=== PATIENT | male | born 1950 | race African-American/Black ===

== ENCOUNTER 2016-07-31 09:47 | Day surgery (SDC) | payer MEDICARE ==
[~2016-07-31] VITALS: Ht 188 cm; Wt 72.6 kg
[~2016-07-31 09:47] MED LIST: ASPIRIN CHEWABL81 MG PO; ATORVASTATIN CA40 MG PO; COZAAR100 MG PO; FLEXERIL PO; HYDROCHLOROT12.5 MG PO; LISINOPRIL10 MG PO; NICOTINE T21 MG/PATC TD; ULTRAM50 M1 PO
[2016-07-31 12:43] VITALS: BP 157/62
== END 2016-07-31 13:05 | disposition home or self-care (01) ==
LOC: ENDO 09:47 → ORM 10:45 → ENDO 10:45
PROVIDERS: ATTEND Internal Medicine Gastroenterology
PROC: 0DJD8ZZ Inspection of Lower Intestinal Tract, Via Natural or Artificial Opening Endoscopic (ICD-10-PCS; principal; 2016-07-31)
DX: K62.5 Hemorrhage of anus and rectum (principal); K59.00 Constipation, unspecified; R63.4 Abnormal weight loss; K64.4 Residual hemorrhoidal skin tags; K57.30 Diverticulosis of large intestine without perforation or abscess without bleeding; K64.8 Other hemorrhoids; I10 Essential (primary) hypertension; E78.00 Pure hypercholesterolemia, unspecified

== ENCOUNTER 2016-10-02 11:32 | Day surgery (SDC) | payer MEDICARE ==
[~2016-10-02] VITALS: Ht 188 cm; Wt 74.8 kg
[2016-10-02] MEDS ORDERED: BP MEDICATION (11:41)
[2016-10-02 14:03] VITALS: BP 184/90
== END 2016-10-02 14:20 | disposition home or self-care (01) ==
LOC: ENDO 11:32 → ORM 12:55 → ENDO 12:55 → ORM 16:30
PROVIDERS: ATTEND Internal Medicine Gastroenterology
PROC: 0DB78ZX Excision of Stomach, Pylorus, Via Natural or Artificial Opening Endoscopic, Diagnostic (ICD-10-PCS; principal; 2016-10-02)
DX: R63.4 Abnormal weight loss (principal); R14.0 Abdominal distension (gaseous); K29.50 Unspecified chronic gastritis without bleeding; B96.81 Helicobacter pylori [H. pylori] as the cause of diseases classified elsewhere; K57.31 Diverticulosis of large intestine without perforation or abscess with bleeding; K59.00 Constipation, unspecified; I10 Essential (primary) hypertension

== ENCOUNTER 2017-03-18 16:20 | Observation (INO) | payer MEDICARE ==
[~2017-03-18] VITALS: Ht 188 cm; Wt 66.4 kg
[~2017-03-18 16:20] MED LIST changes: +BP MEDICATION
[2017-03-18] MEDS ORDERED: BACTRIM DS1 TAB PO (16:29)
[2017-03-18] MEDS ORDERED: LOSARTAN/HCT1 TA1 PO (16:29)
[2017-03-18] MEDS ORDERED: LIPITOR80 M1 PO (16:29)
[2017-03-18] MEDS ORDERED: FINASTERIDE5 MG PO (16:30)
[2017-03-18] MEDS ORDERED: TAMSULOSIN HCL0.4 MG PO (16:30)
--- NOTE | 2017-03-18 16:31 | NUR ---
PT SENT BACK TO WAITING ROOM, ADVISED OF BUSY ER STATUS
[2017-03-18 18:37] LABS: URINE BILIRUBIN - DIPSTICK NEGATIVE (NEGATIVE); URINE BLOOD DIPSTICK LARGE (NEGATIVE); URINE COLOR YELLOW; URINE GLUCOSE - DIPSTICK NEGATIVE (NEGATIVE); URINE KETONE NEGATIVE (NEGATIVE); URINE LEUK ESTERASE MODERATE (NEGATIVE); URINE NITRITE - DIPSTICK NEGATIVE (Negative); URINE PROTEIN - DIPSTICK NEGATIVE (NEG-TRACE)
[2017-03-18 18:38] LABS: URINE CLARITY HAZY
[2017-03-18 18:59] LABS: HEMATOCRIT 33.2 % (39.0-50.0); HEMOGLOBIN 11.7 g/dl (14.0-18.0); IMMATURE GRANULOCYTES 0.7 % (0.0-1.0); MEAN CELL VOLUME 88.5 fL CALC (80.0-100.0); MEAN CORPUSCULAR HGB 31.2 pG CALC (26.0-32.0); MEAN CORPUSCULAR HGB CONC 35.2 g/L CALC (32.0-36.0); NEUT# 12.37 thou/uL (1.82-7.42); RED BLOOD COUNT 3.75 mill/uL (4.70-6.10)
[2017-03-18 19:07] LABS: ALBUMIN 4.2 g/dL (3.2-5.0); ALKALINE PHOSPHATASE 104 u/l (38-126); ANION GAP 17 (6-22 (CALC)); BILIRUBIN, TOTAL 0.7 mg/dL (0.0-1.4); BUN 16 mg/dL (8-23); BUN/CREATININE RATIO 14 (12-20 (CALC)); CALCIUM 9.3 mg/dL (8.4-10.2); CARBON DIOXIDE 25 mmol/l (22-30); CHLORIDE 96 mmol/l (95-108); CREATININE 1.1 mg/dL (0.7-1.3); GFR > 60 ML/MIN (>=60 (CALC)); GFR FOR AFR.AMER. > 60 ML/MIN (>=60 (CALC)); GLUCOSE 113 mg/dL (82-115); POTASSIUM 3.3 mmol/l (3.5-5.1); SGOT/AST 73 u/l (19-48); SGPT/ALT 60 u/l (11-66); SODIUM 134 mmol/l (137-146)
[2017-03-18 19:19] LABS: MYOGLOBIN 335 ng/mL (0 - 121)
--- NOTE | 2017-03-18 19:24 | NUR ---
PT AND DAUGHTER UPDATED ON FINDINGS. PT SEEN WITH LEFT LEG TREMOR INTERMITTENTLY.
--- NOTE | 2017-03-18 20:10 | NUR ---
PT TRANSFERRED TO FLOOR VIA STRETCHER IN STABLE CONDITION;ACCOMPANIED BY ALEXIS,RN AND DAUGHTER;PT AMBULATED WITH A WEAK GAIT TO BEDSIDE;WT AND VS OBTAINED BY JOEY CARY;PT ORIENTED TO ROOM AND CALL LIGHT SYSTEM;A&O X3;ASSESSMENT COMPLETED;PT REPORTS STARTING ABX TODAY 03/18/17 FOR A UTI AND SHORLTY AFTER, AROUND 0800, TREMORS TO THE LEFT LEG BEGAN;PT REPORTS NO PAIN AND IS EDUCATED ON PAIN SCALE AND REPORTING;TREMORS VISUALLY SEEN AT THIS TIME;LEFT SIDED WEAKNESS AND FACIAL DROOPING NOTED;PT HAS HAD X2 STROKES IN THE PAST;CAP REFILL LESS THAN 3 SECONDS;SKIN INTACT;#22G TO LEFT FOREARM FLUSHED AND PATENT;TELE MONITOR IN PLACE;RESPIRATIONS EVEN AND UNLABORED ON RA;CLEAR LUNG SOUNDS NOTED;SAFETY PRECAUTIONS REINFORCED WITH BED IN THE LOWEST POSITION;PT EDUCATED TO CALL FOR ASSISTANCE IF NEEDED;CALL LIGHT IN REACH;WILL CONTINUE TO MONITOR
--- NOTE | 2017-03-18 20:29 | NUR ---
REPORT PROVIDED TO AUSTIN, TO MARIN SOON.
[2017-03-18 21:15] VITALS: BP 138/87
--- NOTE | 2017-03-18 21:22 | NUR ---
PT TAKEN TO ROOM 270, SEEN QUITE ATAXIC FROM STRETCHER TO BED.
--- NOTE | 2017-03-18 21:30 | NUR ---
DAUGHTER, ERLIN WORK PHONE # [phone]
--- NOTE | 2017-03-18 23:00 | NUR ---
PT CURRENT TEMP 100.5;BLANKETS REMOVED,AC LOWERED; NOTIFED AND NEW ORDER FOR TYLENOL 650MG PO OBTAINED
--- NOTE | 2017-03-18 23:50 | NUR ---
PT APPEARS TO BE SLEEPING IN SUPINE POSITION;WOKE PT TO MEDICATE HIM WITH PRN TYLENOL 650MG FOR TEMP OF 100.5;PT DENIES ANY NEEDS;TELE MONITOR IN PLACE;URINAL AT BEDSIDE;CALL LIGHT IN REACH;WILL CONTINUE TO MONITOR
[2017-03-19 00:13] VITALS: BP 112/75
--- NOTE | 2017-03-19 00:13 | NUR ---
PT TEMP RE-CHECK 99.1;BLANKETS REMAIN REMOVED AND AC LOW
--- NOTE | 2017-03-19 04:50 | NUR ---
WOKE PT TO OBTAIN VS;PT AWAKE,RESTING IN SEMI FOWLERS POSITION;RESPIRATIONS EVEN AND UNLABORED ON RA;PT DENIES ANY PAIN;NO TREMORS NOTED;TELE MONITOR IN PLACE;FALL PRECAUTIONS NOTED WITH CALL LIGHT IN REACH;WILL CONTINUE TO MONITOR
[2017-03-19 04:51] VITALS: BP 110/75
[2017-03-19 05:33] LABS: HEMATOCRIT 31.7 % (39.0-50.0); HEMOGLOBIN 11.1 g/dl (14.0-18.0); MEAN CELL VOLUME 87.6 fL CALC (80.0-100.0); MEAN CORPUSCULAR HGB 30.7 pG CALC (26.0-32.0); RED BLOOD COUNT 3.62 mill/uL (4.70-6.10)
[2017-03-19 05:49] LABS: ANION GAP 13 (6-22 (CALC)); BUN 13 mg/dL (8-23); BUN/CREATININE RATIO 13 (12-20 (CALC)); CALCIUM 9.2 mg/dL (8.4-10.2); CALCULATED LDLCHOLESTEROL 67 mg/dL (62-129 (CALC)); CARBON DIOXIDE 26 mmol/l (22-30); CHLORIDE 101 mmol/l (95-108); CHOLESTEROL HDL RATIO 4.6 (<4.4 (CALC)); GFR > 60 ML/MIN (>=60 (CALC)); GFR FOR AFR.AMER. > 60 ML/MIN (>=60 (CALC)); GLUCOSE 108 mg/dL (82-115); HDL CHOLESTEROL 24 mg/dL (>=40); POTASSIUM 3.6 mmol/l (3.5-5.1); SODIUM 137 mmol/l (137-146); TOTAL CHOLESTEROL 110 mg/dl (0-199); TOTAL TRIGLYCERIDES 96 mg/dl (30-149); VLDL CHOLESTROL 19 mg/dl (4-45 (CALC))
--- NOTE | 2017-03-19 07:00 | NUR ---
RECEIVED BEDSIDE REPORT FROM AUSTIN CELIS. RESTING IN BED WITH EYES CLOSED, AWAKENS EASILY. RESPS EVEN AND UNLABORED ON ROOM AIR, TELE MONITOR IN PLACE. DENIES PAIN OR DISCOMFORT. PLAN OF CARE DISCUSSED. SAFETY PRECAUTIONS REINFORCED. BED IN LOWEST POSITION WITH WHEELS LOCKED. CALL LIGHT WITHIN REACH. WILL CONTINUE TO MONITOR.
[2017-03-19 07:20] VITALS: BP 104/71
--- NOTE | 2017-03-19 07:20 | NUR ---
PT ASSESSMENT COMPLETE. PT ALERT, ORIENTED X3. SPEECH IS CLEAR. SLIGHT LEFT SIDED FACIAL DROOP AROUND CHEEK AND MOUTH AREA ONLY. RN AWARE. PT HAS HISTORY OF CATARACT SURGERY PUPILS ROUND, REACTIVE TO LIGHT. STRONG UPPER AND LOWER EXTREMITIES. MINIMAL WEAKNESS TO LEFT SIDE. STRONG RADIAL, APICAL, AND PEDAL PULSES. GOOD CAPILLARY REFILL. NO SKIN TURGOR. LUNG SOUNDS CLEAR. BOWEL SOUNDS ACTIVE. PATIENT STATES NO PAIN AT THIS TIME. SIDE RAILS UP. BED IN LOWEST POSITION. CALL LIGHT WITHIN REACH. WILL CONTINUE TO MONITOR.
[2017-03-19 11:05] VITALS: BP 109/74
--- NOTE | 2017-03-19 13:25 | NUR ---
SITTING IN BEDSIDE CHAIR. RESPS EVEN AND UNLABORED ON ROOM AIR, TELE MONITOR IN PLACE. DENIES PAIN OR DISCOMFORT. DR PARIS IN WITH PT, NEW ORDERS RECEIVED. CALL LIGHT WITHIN REACH. WILL CONTINUE TO MONITOR.
--- NOTE | 2017-03-19 14:30 | NUR ---
PHYSICAL THERAPY IN WITH PT.
[2017-03-19 15:27] VITALS: BP 120/78
--- NOTE | 2017-03-19 16:00 | NUR ---
IN HIGH FOWLERS WATCHING TV. RESPS EVEN AND UNLABORED ON ROOM AIR, TELE MONITOR IN PLACE. VOICES NO NEEDS AT THIS TIME. CALL LIGHT WITHIN REACH. WILL CONTINUE TO MONITOR.
--- NOTE | 2017-03-19 16:17 | NUR ---
Talked to patient today about his medical conditions and his medications. Patient felt better today. patient reported dry mouth when taking his medications. Discuss side effects of his bp medications and medications for BPH. Patient reported not experience any side effects with these medications. Patient does not have any other questions to the pharmacy at this time.
--- NOTE | 2017-03-19 19:00 | NUR ---
RECEIVED CHANGE OF SHIFT REPORT FROM BELGICA MELÉNDEZ. PATIENT LYING IN BED AND APPEARS NOT TO BE IN ANY APPARENT ACUTE DISTRESS OR DISCOMFORT. DENIES PAIN. WILL CONTINUE TO MONITOR.
[2017-03-19 19:35] VITALS: BP 109/70
--- NOTE | 2017-03-20 | NUR ---
PATIENT RESTING QUIETLY AT THIS TIME. NO APPARENT ACUTE DISTRESS NOTED.
[2017-03-20 00:05] VITALS: BP 108/70
--- NOTE | 2017-03-20 04:00 | NUR ---
NO APPARENT ACUTE CHANGES NOTED IN THE PATIENT'S CONDITION.
[2017-03-20 04:19] VITALS: BP 109/74
[2017-03-20 06:31] LABS: HEMATOCRIT 31.2 % (39.0-50.0); HEMOGLOBIN 10.8 g/dl (14.0-18.0); MEAN CELL VOLUME 88.4 fL CALC (80.0-100.0); MEAN CORPUSCULAR HGB 30.6 pG CALC (26.0-32.0); MEAN CORPUSCULAR HGB CONC 34.6 g/L CALC (32.0-36.0); RED BLOOD COUNT 3.53 mill/uL (4.70-6.10); RED CELL DISTRI WIDTH 14.4 % (11.5-15.5)
[2017-03-20 06:51] LABS: ANION GAP 16 (6-22 (CALC)); BUN 18 mg/dL (8-23); BUN/CREATININE RATIO 18 (12-20 (CALC)); CALCIUM 9.5 mg/dL (8.4-10.2); CARBON DIOXIDE 26 mmol/l (22-30); CHLORIDE 101 mmol/l (95-108); GFR > 60 ML/MIN (>=60 (CALC)); GFR FOR AFR.AMER. > 60 ML/MIN (>=60 (CALC)); GLUCOSE 104 mg/dL (82-115); POTASSIUM 3.7 mmol/l (3.5-5.1); SODIUM 140 mmol/l (137-146)
--- NOTE | 2017-03-20 07:00 | NUR ---
SHIFT CHANGE REPORT FROM ITZ MART AWAKE ALERT AND ORIENTED SITTING UP IN RECLINER, DENIES PAIN/DISCOMFORT, TELE MONITOR IN PLACE, CALL HOOD IN REACH.
--- NOTE | 2017-03-20 07:15 | NUR ---
ASSISTED PT TO THE RECLINER, PT DID ORAL CARE. CALL LIGHT IN REACH.
[2017-03-20 08:06] VITALS: BP 115/82
[2017-03-20] MEDS ORDERED: ACETAMIN325 MG PO (11:04)
[2017-03-20] MEDS ORDERED: CIPROFLOXACN500 MG PO (11:05)
[2017-03-20 11:07] VITALS: BP 105/71
--- NOTE | 2017-03-20 15:39 | NUR ---
PT'S DAUGHTER ERLIN INFORMED VIA PHONE THAT PT ID READY TO BE D/C, STATES SHE WILL COME TO RECEIVE HIM.
--- NOTE | 2017-03-20 16:33 | NUR ---
Discharge instructions given. Patient verbalizes understanding of same. Discharged in stable condition via Wheelchair to Home with family. All belongings sent with pt.
== END 2017-03-20 16:16 | disposition home or self-care (01) ==
LOC: ED 16:20 → ED-I 19:20 → ED 19:35 → MS2 19:36
PROVIDERS: Emergency Medicine; Nurse Practitioner Family; ADMIT Internal Medicine; ATTEND Internal Medicine
DX: N39.0 Urinary tract infection, site not specified (principal); I10 Essential (primary) hypertension; F17.210 Nicotine dependence, cigarettes, uncomplicated; B96.20 Unspecified Escherichia coli [E. coli] as the cause of diseases classified elsewhere; R25.8 Other abnormal involuntary movements; E46 Unspecified protein-calorie malnutrition; Z68.1 Body mass index [BMI] 19.9 or less, adult; D64.9 Anemia, unspecified; I69.954 Hemiplegia and hemiparesis following unspecified cerebrovascular disease affecting left non-dominant side; I69.992 Facial weakness following unspecified cerebrovascular disease; R94.31 Abnormal electrocardiogram [ECG] [EKG]
CPT/HCPCS: J1956

== ENCOUNTER 2018-10-02 20:31 | Emergency (ER) | payer MEDICARE ==
[~2018-10-02] VITALS: Ht 188 cm; Wt 75.0 kg
[~2018-10-02 20:31] MED LIST changes: +ACETAMIN325 MG PO; +BACTRIM DS1 TAB PO; +CIPROFLOXACN500 MG PO; +FINASTERIDE5 MG PO; +LIPITOR80 M1 PO; +LOSARTAN/HCT1 TA1 PO; +TAMSULOSIN HCL0.4 MG PO
[2018-10-02] MEDS ORDERED: IBUPROFEN600 MG PO (23:14)
[2018-10-02 23:29] VITALS: BP 168/82
== END 2018-10-02 23:27 | disposition home or self-care (01) ==
LOC: ED 20:31
DX: S20.212A Contusion of left front wall of thorax, initial encounter (principal); I10 Essential (primary) hypertension; F17.210 Nicotine dependence, cigarettes, uncomplicated; W19.XXXA Unspecified fall, initial encounter; Y92.009 Unspecified place in unspecified non-institutional (private) residence as the place of occurrence of the external cause; Z86.73 Personal history of transient ischemic attack (TIA), and cerebral infarction without residual deficits

== ENCOUNTER 2022-01-01 06:55 | Day surgery (SDC) | payer MEDICARE, MEDICAID ==
[~2022-01-01] VITALS: Ht 188 cm; Wt 68.0 kg
[~2022-01-01 06:55] MED LIST changes: +IBUPROFEN600 MG PO
[2022-01-01] MEDS ORDERED: PERCOCET 5/321 COMBO PO ×2 (09:04→11:10)
[2022-01-01 10:03] VITALS: BP 134/97
== END 2022-01-01 10:36 | disposition home or self-care (01) ==
LOC: ORM 06:55
PROVIDERS: ATTEND Surgery
PROC: 0YU60JZ Supplement Left Inguinal Region with Synthetic Substitute, Open Approach (ICD-10-PCS; principal; 2022-01-01)
DX: K40.90 Unilateral inguinal hernia, without obstruction or gangrene, not specified as recurrent (principal); I10 Essential (primary) hypertension; F17.210 Nicotine dependence, cigarettes, uncomplicated
CPT/HCPCS: C9290

== ENCOUNTER 2022-01-04 15:03 | Emergency (ER) | payer MEDICARE, MEDICAID ==
[2022-01-04] VITALS (9 sets, daily range): BP systolic 133–150; BP diastolic 81–99
[~2022-01-04] VITALS: Ht 188 cm; Wt 63.6 kg
[~2022-01-04 15:03] MED LIST changes: +PERCOCET 5/321 COMBO PO
[2022-01-04] MEDS ORDERED: CEPHALEXIN500 MG PO (16:47)
== END 2022-01-04 17:30 | disposition home or self-care (01) ==
LOC: ED 15:03
DX: N48.89 Other specified disorders of penis (principal); I10 Essential (primary) hypertension; F17.200 Nicotine dependence, unspecified, uncomplicated; Z98.890 Other specified postprocedural states; Z86.73 Personal history of transient ischemic attack (TIA), and cerebral infarction without residual deficits

== ENCOUNTER 2024-01-26 18:24 | Emergency (ER) | payer MEDICARE, MEDICAID ==
[2024-01-26] VITALS (12 sets, daily range): BP systolic 143–169; BP diastolic 91–107
[~2024-01-26] VITALS: Ht 195.6 cm; Wt 70.4 kg
[~2024-01-26 18:24] MED LIST changes: +CEPHALEXIN500 MG PO
[2024-01-26] MEDS ORDERED: ASPIRIN 81 MG/TAB PO ONE (20:45)
[2024-01-26 21:08] LABS: BASO% 0.4 % (0-3); EOS% 2.4 % (0-8); HEMATOCRIT 37.6 % (39.0-50.0); HEMOGLOBIN 12.1 g/dl (14.0-18.0); LYMPH% 46.6 % (15-41); MEAN CELL VOLUME 95.7 fL CALC (80.0-100.0); MEAN CORPUSCULAR HGB 30.8 pG CALC (26.0-32.0); MEAN CORPUSCULAR HGB CONC 32.2 g/dL CAL (32.0-36.0); MONO% 9.5 % (2-13); NEUT# 2.2 thou/uL (1.82-7.42); NEUT% 41.1 % (42-76); RED BLOOD COUNT 3.93 mill/uL (4.70-6.10); RED CELL DISTRI WIDTH 15.5 % (11.5-15.5)
[2024-01-26 21:20] LABS: ALBUMIN 4.3 g/dL (3.2-5.0); ALKALINE PHOSPHATASE 62 u/l (38-126); ANION GAP 11 (6-22 (CALC)); BILIRUBIN, TOTAL 0.7 mg/dL (0.2-1.3); BUN 15 mg/dL (8-23); BUN/CREATININE RATIO 20 (12-20 (CALC)); CALCULATED LDLCHOLESTEROL 68 mg/dL (62-129 (CALC)); CARBON DIOXIDE 28 mmol/l (22-30); CHLORIDE 106 mmol/l (95-108); CHOLESTEROL HDL RATIO 2.1 (<4.4 (CALC)); CREATININE 0.8 mg/dL (0.7-1.3); ESTIMATED GFR 94 ML/MIN (>=90 (CALC)); HDL CHOLESTEROL 70 mg/dL (39.0-59.0); POTASSIUM 4.2 mmol/l (3.5-5.1); SGOT/AST 34 u/l (19-48); SODIUM 140 mmol/l (137-146); TOTAL CHOLESTEROL 145 mg/dl (0-199); TOTAL PROTEIN 7.5 g/dL (6.3-8.2); TOTAL TRIGLYCERIDES 32 mg/dl (0-149); VLDL CHOLESTROL 6 mg/dl (0-38 (CALC))
[2024-01-26 21:24] LABS: PROTHROMBIN TIME 11.1 SECONDS (9.0-12.5)
[2024-01-26 23:13] LABS: URINE BILIRUBIN - DIPSTICK Negative (NEGATIVE); URINE BLOOD DIPSTICK Small (NEGATIVE); URINE GLUCOSE - DIPSTICK Negative (NEGATIVE); URINE KETONE Negative (NEGATIVE); URINE UROBILINOGEN - DIPSTICK 0.2 E.U./dL (0.2)
[2024-01-26 23:17] LABS: URINE COLOR Yellow; URINE LEUK ESTERASE Large (NEGATIVE); URINE NITRITE - DIPSTICK Positive (Negative)
[2024-01-26 23:18] LABS: URINE PROTEIN - DIPSTICK Negative (NEG-TRACE)
[2024-01-26 23:23] LABS: URINE BACTERIA MANY hpf; URINE EPITHELIAL CELLS MODERATE EPI/hpf (0-FEW); URINE WBC >100 WBC/hpf (0-5)
[2024-01-27] VITALS: BP 169/100
[2024-01-27] MEDS ORDERED: BACTRIM DS1 TAB PO (00:04)
[2024-01-27] MEDS ORDERED: SULFAMETHOXAZOLE W/TRIMETHOPRI 1 COMBO TAB PO ONE (00:05)
[2024-01-27 00:15] VITALS: BP 162/98
[2024-01-27 00:31] VITALS: BP 164/100
[2024-01-27 00:45] VITALS: BP 172/101
[2024-01-27 01:01] VITALS: BP 168/109
[2024-01-27] MEDS ORDERED: LASIX 40 MG TAB40 MG PO (04:12)
[2024-01-27] MEDS ORDERED: POT CHLORIDE10 ME5 PO (04:12)
[2024-01-27] MEDS ORDERED: COZAAR25 MG PO (04:13)
== END 2024-01-27 00:39 | disposition home or self-care (01) ==
LOC: ED 18:24
PROVIDERS: Family Medicine
DX: N39.0 Urinary tract infection, site not specified (principal); B96.89 Other specified bacterial agents as the cause of diseases classified elsewhere; F14.10 Cocaine abuse, uncomplicated; I69.954 Hemiplegia and hemiparesis following unspecified cerebrovascular disease affecting left non-dominant side; I10 Essential (primary) hypertension; F17.200 Nicotine dependence, unspecified, uncomplicated; Z91.81 History of falling

== ENCOUNTER 2024-01-29 04:57 | Emergency (ER) | payer MEDICARE, MEDICAID ==
[~2024-01-29] VITALS: Ht 195.6 cm; Wt 77.1 kg
[~2024-01-29 04:57] MED LIST changes: +COZAAR25 MG PO; +LASIX 40 MG TAB40 MG PO; +POT CHLORIDE10 ME5 PO
[2024-01-29] MEDS ORDERED: HYDROcodone 5 MG/Acetaminophen 325 MG/COMBO PO ONE (05:20)
[2024-01-29] MEDS ORDERED: HYDROCO/APAP1 TA9 PO (06:50)
[2024-01-29] MEDS ORDERED: cloNIDine HCL 0.1 MG/TAB PO ONE (07:00)
[2024-01-29 09:59] VITALS: BP 148/100
== END 2024-01-29 10:02 | disposition home or self-care (01) ==
LOC: ED 04:57
DX: M70.22 Olecranon bursitis, left elbow (principal); I10 Essential (primary) hypertension; I69.944 Monoplegia of lower limb following unspecified cerebrovascular disease affecting left non-dominant side; F17.200 Nicotine dependence, unspecified, uncomplicated

== ENCOUNTER 2024-05-05 13:11 | Observation (INO) | payer MEDICARE, MEDICAID ==
[~2024-05-05] VITALS: Ht 195.6 cm; Wt 62.0 kg
[~2024-05-05 13:11] MED LIST changes: +HYDROCO/APAP1 TA9 PO
[2024-05-05 13:49] LABS: BASO% 0.4 % (0-3); EOS% 1.2 % (0-8); HEMOGLOBIN 11.5 g/dl (14.0-18.0); LYMPH% 20.3 % (15-41); MEAN CELL VOLUME 95.5 fL CALC (80.0-100.0); MEAN CORPUSCULAR HGB 30.5 pG CALC (26.0-32.0); MEAN CORPUSCULAR HGB CONC 31.9 g/dL CAL (32.0-36.0); MONO% 8.6 % (2-13); NEUT# 3.9 thou/uL (1.82-7.42); NEUT% 69.5 % (42-76); RED BLOOD COUNT 3.77 mill/uL (4.70-6.10); RED CELL DISTRI WIDTH 14.5 % (11.5-15.5)
[2024-05-05 14:05] LABS: ALBUMIN 3.9 g/dL (3.2-5.0); ALKALINE PHOSPHATASE 76 u/l (38-126); ANION GAP 10 (6-22 (CALC)); BILIRUBIN, TOTAL 0.6 mg/dL (0.2-1.3); BUN 16 mg/dL (8-23); BUN/CREATININE RATIO 19 (12-20 (CALC)); CARBON DIOXIDE 27 mmol/l (22-30); CHLORIDE 107 mmol/l (95-108); CREATININE 0.8 mg/dL (0.7-1.3); ESTIMATED GFR 94 ML/MIN (>=90 (CALC)); POTASSIUM 3.9 mmol/l (3.5-5.1); SGOT/AST 26 u/l (19-48); SODIUM 140 mmol/l (137-146); TOTAL PROTEIN 7.2 g/dL (6.3-8.2)
[2024-05-05 16:56] LABS: URINE BILIRUBIN - DIPSTICK Negative (NEGATIVE); URINE BLOOD DIPSTICK Small (NEGATIVE); URINE GLUCOSE - DIPSTICK Negative (NEGATIVE); URINE KETONE Negative (NEGATIVE); URINE PH 7.5 (4.5-8.0); URINE PROTEIN - DIPSTICK Negative (NEG-TRACE)
[2024-05-05 16:57] LABS: URINE COLOR Yellow; URINE LEUK ESTERASE Moderate (NEGATIVE); URINE NITRITE - DIPSTICK Positive (Negative)
[2024-05-05 17:06] LABS: URINE AMORPH SEDIMENT FEW hpf (NONE-FER); URINE BACTERIA MANY hpf; URINE TRICHOMONAS FEW hpf
[2024-05-05] MEDS ORDERED: cefTRIAXone SODIUM 2 GM in SODIUM CHLORIDE 0.9% 100 ML IV ONE (17:30)
[2024-05-05] MEDS ORDERED: SODIUM CHLORIDE 0.9% 1,000 ML IV PRN (18:25)
[2024-05-05] MEDS ORDERED: ACETAMINOPHEN 325 MG/TAB PO PRN (18:25)
[2024-05-05] MEDS ORDERED: MAGNESIUM HYDROXIDE 30 ML UDC PO PRN (18:25)
[2024-05-05 18:40] VITALS: BP 172/97
[2024-05-05 20:00] VITALS: BP 138/80
[2024-05-05] MEDS ORDERED: ENOXAPARIN SODIUM 40 MG/0.4 ML SYR SC SCH (21:00)
[2024-05-06 00:05] VITALS: BP 138/80
[2024-05-06 00:17] VITALS: BP 138/80
[2024-05-06 04:03] VITALS: BP 138/80
[2024-05-06 04:15] VITALS: BP 139/79
[2024-05-06 07:00] VITALS: BP 152/86
[2024-05-06 08:36] VITALS: BP 152/86
[2024-05-06] MEDS ORDERED: ASPIRIN 81 MG/TAB PO SCH (09:00)
[2024-05-06] MEDS ORDERED: LOSARTAN Potassium 25 MG/TAB PO SCH (09:00)
[2024-05-06] MEDS ORDERED: FINASTERIDE 5 MG/TAB PO SCH (09:00)
[2024-05-06] MEDS ORDERED: TAMSULOSIN HCL 0.4 MG CAP PO SCH (09:00)
[2024-05-06] MEDS ORDERED: FUROSEMIDE 40 MG/TAB PO SCH (09:00)
[2024-05-06] MEDS ORDERED: metroNIDAZOLE Premix 500 MG/100 ML BAG IV SCH (11:30)
[2024-05-06] MEDS ORDERED: CIPROFLOXACN500 MG PO (11:31)
[2024-05-06] MEDS ORDERED: METRONIDAZOLE500 MG PO (11:31)
[2024-05-06] MEDS ORDERED: INFLUENZA VIRUS VACCINE FLUZONE HD 2024/25 0.5 ML INJ IM SCH (13:00)
[2024-05-06] MEDS ORDERED: ATORVASTATIN CALCIUM 40 MG/TAB PO SCH (21:00)
== END 2024-05-06 14:05 ==
LOC: ED 13:11 → ED-I 13:32 → ED 13:32 → ED-I 17:20 → ED 17:46 → MS2 17:47
PROVIDERS: Nurse Practitioner; ADMIT Internal Medicine; ATTEND Internal Medicine
DX: N39.0 Urinary tract infection, site not specified (principal); B96.89 Other specified bacterial agents as the cause of diseases classified elsewhere; A59.00 Urogenital trichomoniasis, unspecified; I10 Essential (primary) hypertension; E78.5 Hyperlipidemia, unspecified; N40.1 Benign prostatic hyperplasia with lower urinary tract symptoms; R33.8 Other retention of urine; F17.200 Nicotine dependence, unspecified, uncomplicated; Z86.73 Personal history of transient ischemic attack (TIA), and cerebral infarction without residual deficits; Z23 Encounter for immunization
CPT/HCPCS: 90662; J0696; J1650; J1836; Q9967